=== PATIENT | female | born 1970 | race Caucasian/White ===

== ENCOUNTER 2025-09-21 08:51 | Day surgery (SDC) | payer OTHER ==
[2025-09-21] MEDS ORDERED: methylPREDNISolone acetate IM ONE (08:52)
[2025-09-21] MEDS ORDERED: LIDOCAINE HCL 1% 50 MG/5 ML VL IJ ONE (08:52)
[2025-09-21] MEDS ORDERED: BUPIVACAINE 0.5% VIAL IJ ONE (08:52)
[2025-09-21] MEDS ORDERED: propofoL IV ONE (11:03)
--- NOTE | 2025-09-21 13:06 | XRAY ---
Indication: Left L4-S1 RFA. Intraoperative fluoroscopy provided for 31 seconds. 7 digital spot images submitted for interpretation demonstrates posterior needle tips projecting over expected left L4-S1 nerve roots. Correlate with intraoperative findings/report.
[2025-09-21] MEDS ORDERED: Lactated Ringers 1,000 ML IV ONE ×2 (13:20→14:00)
--- NOTE | 2025-09-21 13:58 | XRAY ---
31 seconds of fluoroscopy was used in surgery for a bilateral L4-S1 RFA.
== END 2025-09-21 11:40 | disposition home or self-care (01) ==
LOC: SDC-PAIN 08:51
PROVIDERS: ATTEND Psychiatry & Neurology Pain Medicine
DX: M47.817 Spondylosis without myelopathy or radiculopathy, lumbosacral region (principal); R73.03 Prediabetes